=== PATIENT | male | born 1950 | race Caucasian/White ===

== ENCOUNTER 2022-07-18 13:30 | Emergency (ER) | payer OTHER, SELFPAY ==
[2022-07-18] VITALS (28 sets, daily range): BP systolic 122–158; BP diastolic 76–96; PULSE 80–110; RESP 11–21; TEMP 36.5–36.7; O2SAT 94–99
--- NOTE | 2022-07-18 13:30 | RT.EKG_ITS ---
APPROVED REPORT Exam: Resting ECG Reason for Exam: EKG changes Patient Location: E HR:89 bpm ECG Measurements Heart Rate 89 AXIS DE 133 P 58 QRSd 76 QRS 55 QT 313 T 229 QTc 382 Conclusion Sinus rhythm...normal P axis, V-rate 60- 99 Nonspecific repol abnormality, diffuse leads...ST dep, T flat/neg, ant/lat/inf sinus rhythm, normal axis, normal intervals; subtle st depressions throughout lateral leads
[2022-07-18 14:32] LABS: Abs Immature Grans 0.02 10^3/uL (0.0-0.06); Absolute Basophil Count 0.04 10^3/uL (0.0-0.2); Absolute Eosinophil Count 0.05 10^3/uL (0.0-0.7); Absolute Lymphocyte Count 2.74 10^3/uL (1.2-3.4); Basophils % 0.4; Eosinophils % 0.5; HCT 47.1 % (40.0-50.0); HGB 16.2 g/dL (13.5-17.5); Immature Grans % 0.2; Lymphocytes % 29.9; MCH 30.5 pg (27.0-33.0); MCHC 34.4 % (32.0-36.0); MCV 89 fL (80-95); MPV 11.4 fL (8.0-11.0); Monocytes % 6.6; Neutrophils % 62.4; Platelet Count 221 10^3/uL (130-400); RBC 5.32 10^6/uL (4.36-5.78); RDW 12.3 % (11.8-14.1); RDW-SD 40.2 fL; WBC 9.15 10^3/uL (4.4-10.8)
[2022-07-18] MEDS: Normal Saline 1,000 ML 1000 ML IV (14:33)
[2022-07-18] MEDS: Ondansetron 4 MG/2 ML VIAL IVP (14:37)
--- NOTE | 2022-07-18 14:39 | DI.RAD_ITS ---
Exam(s) XR PORTABLE CHEST AP EXAM: XR PORTABLE CHEST AP CLINICAL HISTORY: SHORTNESS OF BREATH TECHNIQUE: 2D digital imaging was performed. COMPARISON: No exams were available for comparison FINDINGS: Mild elevation of the left diaphragm. LUNGS: Clear. No pleural abnormality seen. HEART: Normal size. AORTA: Normal diameter. BONES: Unremarkable for age. Soft tissues: Unremarkable. IMPRESSION: No acute findings. DATA REPOSITORY: RADIATION DOSE DELIVERED:
[2022-07-18 14:53] LABS: ALT 34 U/L (16-63); AST 23 U/L (15-37); Albumin 4.1 g/dL (3.4-5.0); Alkaline Phosphatase 85 U/L (46-116); Anion Gap 9.8 mmol/L (3-11); BUN 8 mg/dL (7-18); CO2 28.2 mmol/L (21.0-32.0); CREATININE 1.1 mg/dL (0.70-1.30); Calcium 9.1 mg/dL (8.5-10.1); Chloride 100 mmol/L (98-107); Estimated GFR 71.32 (mL/min/1.73m2); Glucose 159 mg/dL (74-106); Potassium 3.8 mmol/L (3.5-5.1); Sodium 138 mmol/L (136-145); Total Protein 7.8 g/dL (6.4-8.2); Troponin I < 50 ng/L (<or=60)
[2022-07-18 15:03] LABS: Lipase 127 U/L (73-393)
--- NOTE | 2022-07-18 15:13 | ED.GENADUL_ITS ---
Discharge Plan Disposition Patient Disposition: Home Condition: Stable Discharge Details Clinical Impression: Nausea Primary Care Provider: None,None ED Provider: Dhara Valdivia Home Meds and New Rx's Prescriptions: New ondansetron 4 mg tablet,disintegrating 4 mg PO DAILY 3 Days Qty: 6 0RF Continued trazodone 100 mg tablet 100 mg PO DAILY acetaminophen 500 mg capsule 500 mg PO Q6H PRN folic acid 1 mg tablet 1 mg PO DAILY gabapentin 300 mg capsule 300 mg PO TID naproxen 500 mg tablet 500 mg PO BID PRN escitalopram oxalate 20 mg tablet 20 mg PO DAILY calcium carbonate [Antacid (calcium carbonate)] 200 mg calcium (500 mg) tablet,chewable 200 mg PO TID PRN docusate sodium 100 mg tablet 100 mg PO BID PRN thiamine HCl (vitamin B1) 100 mg tablet 100 mg PO DAILY magnesium oxide 400 mg magnesium tablet 400 mg PO DAILY multivitamin Tablet 1 tab PO DAILY ondansetron HCl [Zofran] 4 mg tablet 4 mg PO DAILY simvastatin 20 mg tablet 20 mg PO DAILY pantoprazole 40 mg tablet,delayed release (DR/EC) 40 mg PO DAILY tamsulosin 0.4 mg capsule 0.4 mg PO DAILY mirtazapine 30 mg tablet,disintegrating 15 mg PO QHS Discharge Instructions Instructions: Acute Nausea and Vomiting (ED) Additional Instructions: Zofran as needed for nausea and vomiting Follow-up with your primary care physician [place] diet as tolerated Return earlier should you have new or worsening complaints Referrals: Dhara Valdivia PA [Emergency Provider] - Discharge Data Discharge Date/Time-TO BE ENTERED AT DEPARTURE: 07/18/22 16:25 Medical Decision Making This 71-year-old gentleman presents with report of intermittent nausea with lightheadedness, he reportedly had an EKG at the correctional facility where he currently resides that was reportedly abnormal Patient adamantly denies any chest discomfort Patient with nonspecific changes on EKG, in the absence of any sort of chest pain I think this is reassuring He has a negative initial troponin, will repeat troponin Diagnostic labs I do not show evidence of acute abnormality, specifically negative initial troponin with EKG unchanged Recommendation for repeat troponin level, denies any chest pain stable vitals and alert and oriented throughout encounter Patient adamantly refuses staying for second troponin He is aware of the risk associated with possibility of cardiac etiology of patient's complaints He declines intervention at this time He is discharged home in the care of the correctional facility staff Patient is aware he is leaving against her medical recommendation without completion of his cardiac evaluation Chest x-ray per radiology interpretation my review does not show evidence of acute abnormality Medical Records Medical records reviewed: Yes I reviewed the patient's medical records. Lab Data Lab results reviewed: Yes I reviewed the patient's lab results. HPI General Date/Time Provider Initiated Documentation: 07/18/22 14:10 . HPI Narrative: This 71-year-old male presents with report of lightheadedness and nausea for the past several days. States that he had an EKG performed and reportedly had changes which is why he was sent for assessment. He denies any chest discomfort throughout the entirety of his illness. He denies any fever but does state he had chills. He denies any actual vomiting or diarrhea. There are numerous sick contacts at the correctional facility per patient. Denies any calf pain or swelling. He denies any new medications. Related Data Home Medications Medication Instructions Recorded Confirmed acetaminophen 500 mg capsule 500 mg PO Q6H PRN 04/29/21 09/04/21 calcium carbonate 200 mg calcium 200 mg PO TID PRN 04/29/21 09/04/21 (500 mg) chewable tablet (Antacid (calcium carbonate)) docusate sodium 100 mg tablet 100 mg PO BID PRN 04/29/21 escitalopram oxalate 20 mg tablet 20 mg PO DAILY 04/29/21 folic acid 1 mg tablet 1 mg PO DAILY 04/29/21 09/04/21 gabapentin 300 mg capsule 300 mg PO TID 04/29/21 09/04/21 magnesium oxide 400 mg PO DAILY 04/29/21 09/04/21 multivitamin 1 tab PO DAILY 04/29/21 09/04/21 naproxen 500 mg tablet 500 mg PO BID PRN 04/29/21 ondansetron HCl 4 mg tablet 4 mg PO DAILY 04/29/21 09/04/21 (Zofran) pantoprazole 40 mg tablet,delayed 40 mg PO DAILY 04/29/21 09/04/21 release simvastatin 20 mg tablet 20 mg PO DAILY 04/29/21 09/04/21 tamsulosin 0.4 mg capsule 0.4 mg PO DAILY 04/29/21 09/04/21 thiamine HCl (vitamin B1) 100 mg 100 mg PO DAILY 04/29/21 09/04/21 tablet mirtazapine 30 mg disintegrating 15 mg PO QHS 09/03/21 09/04/21 tablet trazodone 100 mg tablet 100 mg PO DAILY 09/03/21 09/04/21 ondansetron 4 mg disintegrating 4 mg PO DAILY 3 days #6 tabs 07/18/22 tablet Previous Rx's Medication Instructions Recorded ondansetron 4 mg disintegrating 4 mg PO DAILY 3 days #6 tabs 07/18/22 tablet Allergies Allergy/AdvReac Type Severity Reaction Status Date / Time No Known Allergies Allergy Verified 09/03/21 10:21 General Stated Complaint: GenMedical EVE: 3 Review of Systems All systems reviewed & are unremarkable except as noted in HPI and below PFSH All Active Problems (Updated 07/18/22 @ 15:57 by ALIDA Doshi) Nausea (Acute) Alzheimer disease (Chronic) Medical History Alcohol use disorder Anxiety with depression Chronic back pain Cognitive impairment Declining mobility Dementia Hearing loss History of seizure Hyperlipidemia Hyponatremia Metabolic encephalopathy Peripheral vascular disease PTSD (post-traumatic stress disorder) Type 2 diabetes mellitus Vitamin D deficiency Family History Mother Anxiety Dementia Social History Smoking/Tobacco Use Status: Current-Occasional Smoking risk assessment performed?: Yes Alcohol Intake: current Details: ALCOHOLIC 6 PK BEER DAILY-[facility] [employer] WE[employer] Drug use: Never Do you feel safe at home: Yes Do you feel safe in your relationship?: Yes Exam Const General: cooperative, comfortable and no acute distress HENMT Head: normal to inspection Mouth: oral mucosae normal Other: MOIST MUCOUS MEMBRANES Eyes Pupils: PERRL EOM: EOM intact bilaterally Resp Effort & Inspection: normal respiratory effort Auscultation: clear to auscultation bilaterally Cardio Rate: regular rate Rhythm: regular rhythm GI Inspection: normal to inspection Auscultation: normal bowel sounds Other: non-tender Skin General skin exam: no rashes or lesions noted Neuro General: patient alert and patient oriented x3 Extrem Other: distal pulses intact Course Vital Signs Vital signs: Vital Signs Temperature 36.5 C 07/18/22 13:33 Pulse 100 H 07/18/22 13:33 Respiratory Rate 18 07/18/22 13:33 Blood Pressure 143/85 H 07/18/22 13:33 Pulse Oximetry 99 07/18/22 13:33 Temperature 36.5 C 07/18/22 13:33 Temperature Source Tympanic 07/18/22 13:33 Pulse 87 07/18/22 14:01 Pulse 88 07/18/22 14:10 Respiratory Rate 17 07/18/22 14:10 Respiratory Effort 07/18/22 13:41 Blood Pressure 131/83 07/18/22 14:01 Blood Pressure Mean 95 07/18/22 14:01 Blood Pressure Position Supine 07/18/22 13:33 Pulse Oximetry 97 07/18/22 13:42 Oxygen Delivery Method Room Air 07/18/22 13:33 Oxygen Flow Rate 0 07/18/22 13:33 Pain Level 0 07/18/22 13:33 Lab/Test Results Lab/Test Results: Laboratory Tests Range/Units 07/18/22 07/18/22 13:50 13:50 WBC (4.4-10.8) 10^3/uL 9.15 RBC (4.36-5.78) 10^6/uL 5.32 Hgb (13.5-17.5) g/dL 16.2 Hct (40.0-50.0) % 47.1 MCV (80-95) fL 89 MCH (27.0-33.0) pg 30.5 MCHC (32.0-36.0) % 34.4 RDW (11.8-14.1) % 12.3 Plt Count (130-400) 10^3/uL 221 MPV (8.0-11.0) fL 11.4 H Immature Gran % 0.2 Neutrophils % 62.4 Lymphocytes % 29.9 Monocytes % 6.6 Eosinophils % 0.5 Basophils % 0.4 Nucleated RBC % (0.0-0.3) % 0.0 Absolute Neutrophils (1.2-6.7) 10^3/uL 5.70 Absolute Lymphocytes (1.2-3.4) 10^3/uL 2.74 Absolute Monocytes (0.1-0.8) 10^3/uL 0.60 Absolute Eosinophils (0.0-0.7) 10^3/uL 0.05 Absolute Basophils (0.0-0.2) 10^3/uL 0.04 Sodium (136-145) mmol/L 138 Potassium (3.5-5.1) mmol/L 3.8 Chloride (98-107) mmol/L 100 Carbon Dioxide (21.0-32.0) mmol/L 28.2 Anion Gap (3-11) mmol/L 9.8 BUN (7-18) mg/dL 8 Creatinine (0.70-1.30) mg/dL 1.1 Est GFR (CKD-EPI 2020) (mL/min/1.73m2) 71.32 Glucose (74-106) mg/dL 159 H Calcium (8.5-10.1) mg/dL 9.1 Total Bilirubin (0.2-1.0) mg/dL 1.0 AST (15-37) U/L 23 ALT (16-63) U/L 34 Alkaline Phosphatase (46-116) U/L 85 Troponin I (<or=60) ng/L < 50 Total Protein (6.4-8.2) g/dL 7.8 Albumin (3.4-5.0) g/dL 4.1 Lipase (73-393) U/L 127
[2022-07-18 15:43] LABS: Bilirubin Negative (Negative); Blood Negative (Negative); Clarity Clear (Clear); Glucose Negative (Negative); Ketones Negative (Negative); Leukocyte Esterase Negative (Negative); Nitrite Negative (Negative); Urobilinogen 0.2 EU/dL (Up TO 0.2)
== END 2022-07-18 16:25 | disposition home or self-care (01) ==
PROVIDERS: Emergency Provider Physician Assistant
DX: R11.0 Nausea (principal); R42 Dizziness and giddiness; E11.9 Type 2 diabetes mellitus without complications; F03.90 Unspecified dementia, unspecified severity, without behavioral disturbance, psychotic disturbance, mood disturbance, and anxiety
CPT/HCPCS: 80053; 83690; 93005; 96361; 96374; 99284; 71045; 81003; 84484; 85025; 93010; 99285; J2405

== ENCOUNTER 2023-11-18 11:36 | Emergency (ER) | payer MEDICARE, OTHER, SELFPAY ==
[2023-11-18 11:45] VITALS: BP 158/81; PULSE 100; RESP 18; TEMP 36.6; O2SAT 99
--- NOTE | 2023-11-18 13:10 | ED.GENADUL_ITS ---
Discharge Plan Discharge Details Chief Complaint: GenMedical Clinical Impression: Alzheimer disease Primary Care Provider: None,None ED Provider: Manuel Torres Home Meds and New Rx's Prescriptions: No Action trazodone 100 mg tablet 100 mg PO DAILY acetaminophen 500 mg capsule 500 mg PO Q6H PRN naproxen 500 mg tablet 500 mg PO BID PRN escitalopram oxalate 20 mg tablet 20 mg PO DAILY calcium carbonate [Antacid (calcium carbonate)] 200 mg calcium (500 mg) tablet,chewable 200 mg PO TID PRN docusate sodium 100 mg tablet 100 mg PO BID PRN multivitamin Tablet 1 tab PO DAILY pantoprazole 40 mg tablet,delayed release (DR/EC) 40 mg PO DAILY tamsulosin 0.4 mg capsule 0.4 mg PO DAILY mirtazapine 30 mg tablet,disintegrating 15 mg PO QHS metformin 1,000 mg tablet 1,000 mg PO BID HPI General Date/Time Provider Initiated Documentation: 11/18/23 11:42 . HPI Narrative: 73-year-old right-handed man with a history of cognitive impairment/Alzheimer's dementia diagnosed about 3 years ago, alcohol use disorder, anxiety, depression, PTSD, obstructive sleep apnea, tobacco dependency, chronic back pain, and BPH presents today for placement. Patient was recently in long term and had been there for some time. His sentences over, and [facility] was not able to facilitate an immediate transfer to an assisted living area. They have coordinated with [facility] and this coming Thursday and 5 days. Should be available for him there. Unfortunately his sentences done and they were no longer able to keep him there. Patient has been brought to the ER for placement options. Patient has no complaints whatsoever. There is no medical elements for the patient while he was in the DOC's care. Patient has no complaints at this time. Related Data Home Medications Medication Instructions Recorded Confirmed acetaminophen 500 mg capsule 500 mg PO Q6H PRN 04/29/21 11/18/23 calcium carbonate (Antacid 200 mg PO TID PRN 04/29/21 11/18/23 (calcium carbonate)) docusate sodium 100 mg tablet 100 mg PO BID PRN 04/29/21 11/18/23 escitalopram oxalate 20 mg tablet 20 mg PO DAILY 04/29/21 11/18/23 multivitamin 1 tab PO DAILY 04/29/21 11/18/23 naproxen 500 mg tablet 500 mg PO BID PRN 04/29/21 11/18/23 pantoprazole 40 mg tablet,delayed 40 mg PO DAILY 04/29/21 11/18/23 release tamsulosin 0.4 mg capsule 0.4 mg PO DAILY 04/29/21 11/18/23 mirtazapine 30 mg disintegrating 15 mg PO QHS 09/03/21 11/18/23 tablet trazodone 100 mg tablet 100 mg PO DAILY 09/03/21 11/18/23 metformin 1,000 mg tablet 1,000 mg PO BID 11/18/23 11/18/23 Allergies Allergy/AdvReac Type Severity Reaction Status Date / Time No Known Allergies Allergy Verified 11/18/23 12:01 General Stated Complaint: GenMedical EVE: 4 Review of Systems All systems reviewed & are unremarkable except as noted in HPI and below Exam Narrative Exam Narrative: 1.Const: Well-nourished, Well-developed, appearing stated age 2.Eyes: PERRL, no conjunctival injection, and symmetrical lids. 3.ENT: Atraumatic external nose and ears. Moist MM. Neck: Symmetric, trachea midline, No thyromegaly. 4.CVS: +S1/S2, No murmurs or gallops. Peripheral pulses 2+ and equal in all extremities. Brisk capillary refill in all extremities. 5.RESP: Unlabored respiratory effort. Clear to auscultation bilaterally. No wheezes rales or rhonchi 6.GI: Soft, Nontender/Nondistended, No hepatosplenomegaly. No guarding or rebound. 7.MSK: Normocephalic/Atraumatic, Extremities w/o deformity or ttp No cyanosis or clubbing, Normal movement of all extremities 8.Skin: Warm, Dry. No rashes or lesions. 9.Neuro: alligator hunter II-XII grossly intact. Sensation grossly intact, no focal neurologic deficits. 10.Psych: (AAO) x1. Appropriate mood and affect. Pleasantly confused. Course Vital Signs Vital signs: Vital Signs Temperature 36.6 C 11/18/23 11:45 Pulse 100 H 11/18/23 11:45 Respiratory Rate 18 11/18/23 11:45 Blood Pressure 158/81 H 11/18/23 11:45 Pulse Oximetry 99 11/18/23 11:45 Temperature 36.6 C 11/18/23 11:45 Temperature Source Skin 11/18/23 11:45 Pulse 100 H 11/18/23 11:45 Respiratory Rate 18 11/18/23 11:45 Respiratory Effort Normal 11/18/23 12:29 Respiratory Depth Normal 11/18/23 12:29 Blood Pressure 158/81 H 11/18/23 11:45 Blood Pressure Position Sitting 11/18/23 11:45 Pulse Oximetry 99 11/18/23 11:45 Oxygen Delivery Method Room Air 11/18/23 11:45 Oxygen Flow Rate 0 11/18/23 11:45 Medical Decision Making 73-year-old right-handed man with a history of cognitive impairment/Alzheimer's dementia diagnosed about 3 years ago, alcohol use disorder, anxiety, depression, PTSD, obstructive sleep apnea, tobacco dependency, chronic back pain, and BPH presents today for placement. Patient was recently in long term and had been there for some time. His sentences over, and the [facility] was not able to facilitate an immediate transfer to an assisted living area. They have coordinated with [facility] and this coming Thursday and 5 days. Should be available for him there. Unfortunately his sentences done and they were no longer able to keep him there. Patient has been brought to the ER for placement options. Patient has no complaints whatsoever. There is no medical elements for the patient while he was in the DOC's care. Patient has no complaints at this time. Exam demonstrates pleasantly confused male, vital signs stable, no focal deficits. He appears calm and complacent but he does not know what is really going on. We did explain it to him, but he did ask repeated questions demonstrating that he was not able to retain or remember the information. We did talk to our case briefer, they are trying to facilitate additional placement options in the interim. We talked with hospital administration and they recommend continuing to monitor the patient either in the emergency department or in an inpatient swing bed setting. 1:54 PM Patient remains medically stable. All medications have been placed for his scheduled meds. I did speak with the patient's daughter, she is his power of commonwealth attorney. She will be sending the paperwork for that. Spoke with greenhouse assistant, and case management. At this time the decision has been made that we will keep him in the emergency department and watch him overnight to see how he does. If he does well then he can potentially be transferred to the floor until his disposition on Thursday. Patient will be signed out for continued observation. Quality:SDOH Health Related Social Needs: No Data to Display PFSH All Active Problems (Updated 11/18/23 @ 13:54 by Manuel Torres DO) Alzheimer disease (Chronic) Medical History Hyponatremia History of seizure Vitamin D deficiency Peripheral vascular disease Type 2 diabetes mellitus Hyperlipidemia Cognitive impairment Chronic back pain Alcohol use disorder Hearing loss Metabolic encephalopathy PTSD (post-traumatic stress disorder) Anxiety with depression Dementia Declining mobility Family History Mother Anxiety Dementia Social History Smoking/Tobacco Use Status: Current-Occasional Smoking risk assessment performed?: Yes Alcohol Intake: current Details: ALCOHOLIC 6 PK BEER DAILY-[facility] DRINKING WELL Drug use: Never Housing: other Do you feel safe at home: Yes Do you feel safe in your relationship?: Yes
[2023-11-18] MEDS: Pantoprazole 40 MG TABCR PO (15:18)
[2023-11-18] MEDS: Calcium Carbonate *TUMS* 500 MG CHEW PO ×2 (15:18→15:32)
--- NOTE | 2023-11-18 15:40 | NUR.NOTE ---
report given to ELIZABETH Sanchez and care relinquished Nursing Note:
[2023-11-18] MEDS: metFORMIN 500 MG TAB 1000 MG PO (17:50)
[2023-11-18] MEDS: Docusate Sodium 100 MG/10 ML CUP PO (20:29)
[2023-11-18] MEDS: Simethicone 80 MG CHEW 160 MG CH (20:30)
[2023-11-18] MEDS: Tamsulosin 0.4 MG CAPCR PO (20:30)
[2023-11-18] MEDS: traZODone 100 MG TAB PO (20:30)
[2023-11-18] MEDS: Escitalopram 10 MG TAB 30 MG PO (20:30)
[2023-11-18] MEDS: Mirtazapine 15 MG TAB PO (20:30)
--- NOTE | 2023-11-19 07:59 | INITIAL_ITS ---
Date of service: 11/19/23 Time of Service: 08:00 Care Management Initial Assmt Initial Assessment REASON FOR HOSPITALIZATION:: Placement, DOC DC PREVIOUS FUNCTIONAL STATUS/SOCIAL/FAMILY SUPPORTS:: Nicholas was discharged from [facility] on 11/18/23, [facility] has accepted him for admission for [facility] care on 11/23/23. Mr. Lainez did not have an appropriate disposition and [facility] reports inability to hold him after his sentence is complete. Nicholas presented to [facility] via DOC transport yesterday afternoon. He was evaluated by Dr. Torres who reports no medical indication for work up, labs, etc., though reports he would be willing to order if requested. CURRENT FUNCTIONAL STATUS:: Nicholas is currently in a period of observation in Zone B in the Emergency Department, undetermined if he will admit to [facility]; anticipate further discussion. CM following. ADVANCE DIRECTIVES:: None on file. Has patient been provided with info about the portal/API?: No Did the patient sign up for the portal?: No CODE STATUS:: Full Code INSURANCE COVERAGE / FINANCIAL ISSUES:: Medicaid, determine Medicare coverage CURRENT HOME/COMMUNITY SERVICES/EQUIPMENT:: None currently, admitting to SNF 11/23/23. No use of ambulatory aid. POTENTIAL DISCHARGE NEEDS:: Coordinated placement at [facility] PATIENT/FAMILY EDUCATION NEEDS:: Review discharge planning and instructions. ANTICIPATED BARRIERS TO DISCHARGE:: None identified; placement established. TRANSPORTATION:: EMS anticipated. PLAN:: Nicholas will discharge to [facility] mid-morning on 11/23/23 via EMS for terminal gauger placement related to dementia and inability to care for himself. CM continues to follow. PFSH All Active Problems (Updated 11/18/23 @ 13:54 by Manuel Torres DO) Alzheimer disease (Chronic) Medical History Hyponatremia History of seizure Vitamin D deficiency Peripheral vascular disease Type 2 diabetes mellitus Hyperlipidemia Cognitive impairment Chronic back pain Alcohol use disorder Hearing loss Metabolic encephalopathy PTSD (post-traumatic stress disorder) Anxiety with depression Dementia Declining mobility Family History Mother Anxiety Dementia Social History Smoking/Tobacco Use Status: Current-Occasional Smoking risk assessment performed?: Yes Alcohol Intake: current Details: ALCOHOLIC 6 PK BEER DAILY-[facility] DRINKING WELL Drug use: Never Housing: other Do you feel safe at home: Yes Do you feel safe in your relationship?: Yes SDOH(Care Management) Screening Will the Patient Participate in the Screening?: Declined to provide
[2023-11-19] MEDS: Docusate Sodium 100 MG/10 ML CUP PO ×2 (09:58→20:08)
[2023-11-19] MEDS: metFORMIN 500 MG TAB 1000 MG PO ×2 (09:59→16:58)
[2023-11-19] MEDS: Simethicone 80 MG CHEW 160 MG CH ×3 (09:59→20:07)
[2023-11-19 10:02] VITALS: BP 115/71; PULSE 98; RESP 20; TEMP 36.3; O2SAT 96
[2023-11-19] MEDS: Calcium Carbonate *TUMS* 500 MG CHEW PO ×2 (15:32→17:54)
--- NOTE | 2023-11-19 16:56 | ED.PROG_ITS ---
Date of service: 11/19/23 Time of Service: 16:59 Medical Decision Making Patient here awaiting [facility] a penitentiary, no issues on prior shift per signout, no acute complaints currently will continue to monitor until safe disposition found Quality:[facility] Health Related Social Needs: No Data to Display Sign Out Sign Out Data: Sign Out Comment: [facility] recently [facility], he has placement at [facility] in 5 days on Thursday. Medically stable here. Will observe in the ER for 24 hours, if he remains stable he can be admitted to the floor. Case management, supervisors and administration are actively involved. Last updated by Manuel Torres DO at 11/18/23 14:05 Sign Out Comment: [facility] from [facility] and brought to the ED to await bed placement on Thursday ([facility]) [facility] dementia Home meds ordered Belongings with security Plan for hospital admission in the morning Case management, supervisors and administration are actively involved. Last updated by Ria Armas MD at 11/18/23 21:14 Sign Out Comment: No issues overnight. Patient has been calm and cooperative pending hospital admission per previous discussion with case management and administration yesterday. Last updated by Aamir Tiwari MD at 11/19/23 06:56 Sign Out Comment: dementia, awaiting penitentiary placement Last updated by Ousmane Centeno MD at 11/19/23 16:45 Discharge Plan Discharge Details Chief Complaint: GenMedical Clinical Impression: Alzheimer disease Primary Care Provider: None,None ED Provider: Jose Merchant Home Meds and New Rx's Prescriptions: No Action trazodone 100 mg tablet 100 mg PO HS PRN acetaminophen 500 mg capsule 500 mg PO Q6H PRN naproxen 500 mg tablet 500 mg PO BID PRN escitalopram oxalate 20 mg tablet 20 mg PO DAILY calcium carbonate [Antacid (calcium carbonate)] 200 mg calcium (500 mg) tablet,chewable 200 mg PO TID PRN docusate sodium 100 mg tablet 100 mg PO BID PRN multivitamin Tablet 1 tab PO DAILY pantoprazole 40 mg tablet,delayed release (DR/EC) 40 mg PO DAILY tamsulosin 0.4 mg capsule 0.4 mg PO HS mirtazapine 30 mg tablet,disintegrating 15 mg PO QHS metformin 1,000 mg tablet 1,000 mg PO BID escitalopram oxalate 10 mg tablet 30 mg PO HS simethicone [Gas Relief Ultra Strength] 180 mg capsule 180 mg PO TID PRN Rx Instructions: AM, NOON, BEDTIME
[2023-11-19] MEDS: Mirtazapine 15 MG TAB PO (20:08)
[2023-11-19] MEDS: Pantoprazole 40 MG TABCR PO (20:08)
[2023-11-19] MEDS: traZODone 100 MG TAB PO (20:08)
[2023-11-19] MEDS: Tamsulosin 0.4 MG CAPCR PO (20:09)
[2023-11-19] MEDS: Escitalopram 10 MG TAB 30 MG PO (20:09)
--- NOTE | 2023-11-19 22:13 | ED.PROG_ITS ---
Date of service: 11/19/23 Time of Service: 22:13 Medical Decision Making This patient was signed out to me. Please see previous notes for H&P and initial eval. In brief, 73tyo M with dementia awaiting long-term placement, accepted for Thursday. Overnight no acute events. Signed out to oncoming physician, plan remains as above. Quality:[facility] Health Related Social Needs: No Data to Display Sign Out Sign Out Data: Sign Out Comment: [facility], he has placement at [facility] in 5 days on Thursday. Medically stable here. Will observe in the ER for 24 hours, if he remains stable he can be admitted to the floor. Case management, supervisors and administration are actively involved. Last updated by Manuel Torres DO at 11/18/23 14:05 Sign Out Comment: [facility] from [facility] and brought to the ED to await bed placement on Thursday ([facility]) [facility] dementia Home meds ordered Belongings with security Plan for hospital admission in the morning Case management, supervisors and administration are actively involved. Last updated by Ria Armas MD at 11/18/23 21:14 Sign Out Comment: No issues overnight. Patient has been calm and cooperative pending hospital admission per previous discussion with case management and administration yesterday. Last updated by Aamir Tiwari MD at 11/19/23 06:56 Sign Out Comment: dementia, awaiting long-term placement Last updated by Ousmane Centeno MD at 11/19/23 16:45 Sign Out Comment: [facility] here [facility], no issues during shift Last updated by Jose Merchant MD at 11/19/23 18:45 Discharge Plan Discharge Details Chief Complaint: GenMedical Clinical Impression: Alzheimer disease Primary Care Provider: None,None ED Provider: Casie Cunha Home Meds and New Rx's Prescriptions: No Action trazodone 100 mg tablet 100 mg PO HS PRN acetaminophen 500 mg capsule 500 mg PO Q6H PRN naproxen 500 mg tablet 500 mg PO BID PRN escitalopram oxalate 20 mg tablet 20 mg PO DAILY calcium carbonate [Antacid (calcium carbonate)] 200 mg calcium (500 mg) tablet,chewable 200 mg PO TID PRN docusate sodium 100 mg tablet 100 mg PO BID PRN multivitamin Tablet 1 tab PO DAILY pantoprazole 40 mg tablet,delayed release (DR/EC) 40 mg PO DAILY tamsulosin 0.4 mg capsule 0.4 mg PO HS mirtazapine 30 mg tablet,disintegrating 15 mg PO QHS metformin 1,000 mg tablet 1,000 mg PO BID escitalopram oxalate 10 mg tablet 30 mg PO HS simethicone [Gas Relief Ultra Strength] 180 mg capsule 180 mg PO TID PRN Rx Instructions: AM, NOON, BEDTIME
[2023-11-20] MEDS: Simethicone 80 MG CHEW 160 MG CH ×3 (09:04→20:50)
[2023-11-20] MEDS: Docusate Sodium 100 MG/10 ML CUP PO ×2 (09:04→20:50)
[2023-11-20] MEDS: metFORMIN 500 MG TAB 1000 MG PO ×2 (09:04→17:25)
[2023-11-20 09:06] VITALS: BP 109/56; PULSE 104; RESP 18; TEMP 36.5; O2SAT 95
--- NOTE | 2023-11-20 09:13 | W.PM.HP.N ---
PFSH All Active Problems (Updated 11/18/23 @ 13:54 by Manuel Torres DO) Alzheimer disease (Chronic) Medical History Hyponatremia History of seizure Vitamin D deficiency Peripheral vascular disease Type 2 diabetes mellitus Hyperlipidemia Cognitive impairment Chronic back pain Alcohol use disorder Hearing loss Metabolic encephalopathy PTSD (post-traumatic stress disorder) Anxiety with depression Dementia Declining mobility Family History Mother Anxiety Dementia Social History Smoking/Tobacco Use Status: Current-Occasional Smoking risk assessment performed?: Yes Alcohol Intake: current Details: ALCOHOLIC 6 PK BEER DAILY-[employer] Drug use: Never Housing: other Do you feel safe at home: Yes Do you feel safe in your relationship?: Yes Meds Allergies and Home Medications Allergies Allergy/AdvReac Type Severity Reaction Status Date / Time No Known Allergies Allergy Verified 11/18/23 12:01 Home Medications Medication Instructions Recorded Confirmed Type acetaminophen 500 mg capsule 500 mg PO Q6H PRN 04/29/21 11/18/23 History calcium carbonate (Antacid 200 mg PO TID PRN 04/29/21 11/18/23 History (calcium carbonate)) docusate sodium 100 mg tablet 100 mg PO BID PRN 04/29/21 11/18/23 History escitalopram oxalate 20 mg tablet 20 mg PO DAILY 04/29/21 11/18/23 History multivitamin 1 tab PO DAILY 04/29/21 11/18/23 History naproxen 500 mg tablet 500 mg PO BID PRN 04/29/21 11/18/23 History pantoprazole 40 mg tablet,delayed 40 mg PO DAILY 04/29/21 11/18/23 History release tamsulosin 0.4 mg capsule 0.4 mg PO HS 04/29/21 11/18/23 History mirtazapine 30 mg disintegrating 15 mg PO QHS 09/03/21 11/18/23 History tablet trazodone 100 mg tablet 100 mg PO HS PRN 09/03/21 11/18/23 History escitalopram oxalate 10 mg tablet 30 mg PO HS 11/18/23 11/18/23 History metformin 1,000 mg tablet 1,000 mg PO BID 11/18/23 11/18/23 History simethicone 180 mg capsule (Gas 180 mg PO TID PRN 11/18/23 11/18/23 History Relief Ultra Strength) Results Last Vital Signs Temp 97.7 F 11/20/23 09:06 Pulse 104 H 11/20/23 09:06 Resp 18 11/20/23 09:06 BP 109/56 L 11/20/23 09:06 Pulse Ox 95 11/20/23 09:06
[2023-11-20 10:02] VITALS: PULSE 90
[2023-11-20] MEDS: Acetaminophen 500 MG TAB PO (12:38)
[2023-11-20 14:02] VITALS: BP 95/61; PULSE 89; RESP 16; TEMP 36.4; O2SAT 94
--- NOTE | 2023-11-20 15:59 | W.EDPROG ---
Date of service: 11/20/23 Time of Service: 12:00 Medical Decision Making I spoke with care management about the case and they recommended transition to swing bed status. I called and spoke with Dr. Hanson, discussed ED presentation and course, he will admit the patient to swing bed with plan for placement on Thursday. Quality:[facility] Health Related Social Needs: No Data to Display Sign Out Sign Out Data: Sign Out Comment: Patient recently [facility], he has placement at [facility] in 5 days on Thursday. Medically stable here. Will observe in the ER for 24 hours, if he remains stable he can be admitted to the floor. Case management, supervisors and administration are actively involved. Last updated by Manuel Torres DO at 11/18/23 14:05 Sign Out Comment: Released from [facility] and brought to the ED to await bed placement on Thursday ([facility]) [facility] dementia Home meds ordered Belongings with security Plan for hospital admission in the morning Case management, supervisors and administration are actively involved. Last updated by Ria Armas MD at 11/18/23 21:14 Sign Out Comment: No issues overnight. Patient has been calm and cooperative pending hospital admission per previous discussion with case management and administration yesterday. Last updated by Aamir Tiwari MD at 11/19/23 06:56 Sign Out Comment: dementia, awaiting retirement placement Last updated by Ousmane Centeno MD at 11/19/23 16:45 Sign Out Comment: Patient here awaiting placement in a retirement for dementia, no issues during shift Last updated by Jose Merchant MD at 11/19/23 18:45 Sign Out Comment: Dementia, awaiting retirement placement planned for Thursday. Last updated by Casie Cunha MD at 11/20/23 05:40 Discharge Plan Disposition Patient Disposition: Admit to [facility] Condition: Stable Discharge Details Chief Complaint: GenMedical Clinical Impression: Alzheimer disease Primary Care Provider: None,None ED Provider: Miguelangel Mendiola Home Meds and New Rx's Prescriptions: No Action trazodone 100 mg tablet 100 mg PO HS PRN acetaminophen 500 mg capsule 500 mg PO Q6H PRN naproxen 500 mg tablet 500 mg PO BID PRN escitalopram oxalate 20 mg tablet 20 mg PO DAILY calcium carbonate [Antacid (calcium carbonate)] 200 mg calcium (500 mg) tablet,chewable 200 mg PO TID PRN docusate sodium 100 mg tablet 100 mg PO BID PRN multivitamin Tablet 1 tab PO DAILY pantoprazole 40 mg tablet,delayed release (DR/EC) 40 mg PO DAILY tamsulosin 0.4 mg capsule 0.4 mg PO HS mirtazapine 30 mg tablet,disintegrating 15 mg PO QHS metformin 1,000 mg tablet 1,000 mg PO BID escitalopram oxalate 10 mg tablet 30 mg PO HS simethicone [Gas Relief Ultra Strength] 180 mg capsule 180 mg PO TID PRN Rx Instructions: AM, NOON, BEDTIME
--- NOTE | 2023-11-20 19:17 | NUR.NOTE ---
CONTACTED DR GONZALES ABOUT NEW ORDER FOR Q4[facility] VITALS BY [employer]. ORDERS VITALS CHANGED TO DAILYNursing Note:
[2023-11-20] MEDS: Pantoprazole 40 MG TABCR PO (20:49)
[2023-11-20] MEDS: Escitalopram 10 MG TAB 30 MG PO (20:49)
[2023-11-20] MEDS: Mirtazapine 15 MG TAB PO (20:50)
[2023-11-20] MEDS: Tamsulosin 0.4 MG CAPCR PO (20:50)
[2023-11-20] MEDS: traZODone 100 MG TAB PO (20:50)
[2023-11-21] MEDS: Docusate Sodium 100 MG/10 ML CUP PO ×2 (10:06→20:15)
[2023-11-21] MEDS: metFORMIN 500 MG TAB 1000 MG PO ×2 (10:06→17:51)
[2023-11-21] MEDS: Acetaminophen 500 MG TAB PO (10:06)
[2023-11-21] MEDS: Simethicone 80 MG CHEW 160 MG CH ×3 (10:06→20:15)
[2023-11-21 10:17] VITALS: BP 123/78; PULSE 78; RESP 16; TEMP 36.3; O2SAT 95
[2023-11-21] MEDS: Tamsulosin 0.4 MG CAPCR PO (20:14)
[2023-11-21] MEDS: Pantoprazole 40 MG TABCR PO (20:15)
[2023-11-21] MEDS: Mirtazapine 15 MG TAB PO (20:15)
[2023-11-21] MEDS: traZODone 100 MG TAB PO (20:15)
[2023-11-21] MEDS: Escitalopram 10 MG TAB 30 MG PO (20:15)
[2023-11-22] MEDS: metFORMIN 500 MG TAB 1000 MG PO ×2 (12:27→20:33)
[2023-11-22] MEDS: Docusate Sodium 100 MG/10 ML CUP PO ×2 (12:27→20:32)
[2023-11-22] MEDS: Simethicone 80 MG CHEW 160 MG CH ×2 (12:28→20:33)
[2023-11-22 19:30] VITALS: BP 124/78; PULSE 82; RESP 16; TEMP 36.5; O2SAT 95
--- NOTE | 2023-11-22 19:35 | NUR.NOTE ---
Patient spoke of wanting to be place at a longterm closer to where his sisters and daughter live. He mentioned his sisters and daughter live in [place] [address]. He said he would prefer to go to [facility] since that is closer to where his family and friends live. He asked where [facility] is located and I mentioned it is located in [place]. He addressed concerns with me that his family and friends would not be willing to travel all the way from where they live in [place] [address] to come visit him in [place]. He asked if I could inquire about having him placed at [facility] or another longterm near the [address] area. I informed him I would pass his request along to his nurse and ask that the care managers/[facility] be informed of his request so they are aware of this prior to his transfer to [facility].
[2023-11-22] MEDS: Escitalopram 10 MG TAB 30 MG PO (20:32)
[2023-11-22] MEDS: Mirtazapine 15 MG TAB PO (20:33)
[2023-11-22] MEDS: traZODone 100 MG TAB PO (20:33)
[2023-11-22] MEDS: Tamsulosin 0.4 MG CAPCR PO (20:33)
[2023-11-22] MEDS: Pantoprazole 40 MG TABCR PO (20:33)
[2023-11-23 07:48] VITALS: TEMP 36.2
[2023-11-23 07:49] VITALS: BP 115/70; PULSE 64; RESP 15; TEMP 36.6; O2SAT 96
[2023-11-23] MEDS: Docusate Sodium 100 MG/10 ML CUP PO (07:59)
[2023-11-23] MEDS: metFORMIN 500 MG TAB 1000 MG PO (07:59)
[2023-11-23 10:22] VITALS: BP 115/70; PULSE 64; RESP 15; TEMP 36.6; O2SAT 96
== END 2023-11-23 10:32 | disposition short-term general hospital (02) ==
PROVIDERS: Emergency Provider Student in an Organized Health Care Education/Training Program
DX: G30.9 Alzheimer's disease, unspecified (principal); F02.80 Dementia in other diseases classified elsewhere, unspecified severity, without behavioral disturbance, psychotic disturbance, mood disturbance, and anxiety
CPT/HCPCS: 00123; 99285